=== PATIENT | male | born 1955 | race Caucasian/White ===

== ENCOUNTER 2020-09-12 06:24 | Day surgery (SDC) | payer OTHER ==
[2020-09-12] MEDS ORDERED: Lidocaine 1% with EPINEPHrine 1:100,000 50 ML MDV ONE (06:35)
[2020-09-12] MEDS ORDERED: Bupivacaine 0.5% 50 ML MDV ONE (06:35)
[2020-09-12] MEDS ORDERED: Acetaminophen 500 MG Tab PO ONE (06:45)
[2020-09-12] MEDS ORDERED: Dextrose 5%-Lactated Ringers 1,000 ML IV SCH (07:30)
[2020-09-12] MEDS ORDERED: fentaNYL 100 MCG/2 ML SDV ONE (08:08)
[2020-09-12] MEDS ORDERED: Midazolam 1 MG/ML 2 ML SDV ONE ×2 (08:08→08:13)
[2020-09-12] MEDS ORDERED: Propofol 200 MG/20 ML SDV ONE ×2 (08:08→08:41)
--- NOTE | 2020-09-22 11:51 | OR ---
DATE OF PROCEDURE: 09/12/2020 SURGEON: Anirudh Thurston MD PREOPERATIVE DIAGNOSIS: Persistent right axillary lymphadenopathy. POSTOPERATIVE DIAGNOSIS: Persistent right axillary lymphadenopathy. OPERATIVE PROCEDURE: Left axillary lymph node biopsy (06211). ANESTHESIA: Local plus IV sedation. INDICATIONS FOR PROCEDURE: A 65-year-old male, referred from the [facility] for what initially was requested a fine-needle aspiration of some enlarged persistent right axillary nodes. We elected to proceed with an open excisional biopsy which I think would provide a more definitive diagnosis of both possible infectious agents as well as lymphoma. These nodes have been present for some time, and if this lymphoma likely would be a well- differentiated follicular lymphoma, which the fine-needle aspiration would have difficult differentiating due to the similarity of normal lymphocytes from the malignant lymphocytes and well-differentiated lymphoma. Potential risks of the procedure including bleeding and infection, injury to nerves in the area, possible lymphocele formation were gone over and the patient wishes to proceed. DETAILS OF PROCEDURE: The patient was taken to the operating room and placed in a supine position. After IV sedation was administered, the right axilla and surrounding areas were prepped and draped and anesthetized with 1% lidocaine mixed with Marcaine. A transversely oriented incision over the palpable nodes in the lowest central axilla was then made and carried down through the skin, subcutaneous tissue, and through the axillary fascia and within the deep axilla, then there was an aggregate of nodes. These were probably 2 nodes aggregated together. These were excised by means of electrocautery with major lymphatic vessels coming in and out of the area of excision being tied with 4-0 Vicryl ties after being divided. The specimen was then delivered from the field. Small amount of tissue was excised and sent for microbiologic workup and the remaining specimen sent for histologic evaluation. Good hemostasis was confirmed at this point and the axillary fascia was approximated with some 3-0 Vicryl stitch, subcutaneous tissue with 4-0 Vicryl stitch, and the skin with 4-0 Vicryl subcuticular stitch and surgical glue and dressing applied. The patient was taken to the recovery room in satisfactory condition. Anirudh Thurston MD /[id number]
== END 2020-09-12 10:30 | disposition home or self-care (01) ==
LOC: JP.SDS 06:24
PROVIDERS: ATTEND Surgery
DX: C82.04 Follicular lymphoma grade I, lymph nodes of axilla and upper limb (principal); R59.0 Localized enlarged lymph nodes
CPT/HCPCS: 38525; 87015; 87070; 87077; 87102; 87116; 87186; 87205; 87206; 87220; A9270; J2250; J2704; J3010; J3490; J7121